=== PATIENT | female | born 1955 | race Caucasian/White ===

== ENCOUNTER 2022-06-10 15:03 | Emergency (ER) | payer MEDICARE, SELFPAY ==
[2022-06-10 15:39] VITALS: BP 151/73; PULSE 74; RESP 18; TEMP 36.4; O2SAT 98; BMI 21.8
--- NOTE | 2022-06-10 17:16 | ED.NURSE ---
DR DIOP AWARE OF VS AND CRITICAL CONDITION. -POSSIBLE SEPSIS. DID HANG ZOSYN AND DR AWARE THAT 2ND SET OF BLOOD CULTURES NOT OBTAINED PER LAB. TO GO AHEAD AND START THE ANTIBIOTICS. 02 AT 2 L N/C. RR 36.
--- NOTE | 2022-06-10 19:23 | ED.GENADULT ---
HPI - General Adult General Date Seen: 06/10/22 Chief complaint: Extremity Pain/Injury, Lower Stated complaint: POSSIBLE BLEED ON THIGH,INR HIGH-SENT BY CLINIC Time Seen by Provider: 06/10/22 17:13 Source: patient History of Present Illness HPI narrative: Patient is a 67-year-old woman who presents for evaluation of possible bleed in her left thigh. She takes Coumadin for history both of Factor 5 Leiden and DVT as well as for mechanical valve. She had her INR checked today and it was 3.5. She says this morning when she woke up she felt like she had muscle pull in her left medial mid thigh. There was lump there as well which has maybe gotten slightly bigger since this morning but not considerably so. She denies any specific trauma to that area but she is very physically active. Her says she exercises couple of times a day and often bikes 10 miles or more a day. She says she has a history of a fairly significant bleed in her right thigh which required several days hospitalization, so she wants to make sure that does not happen on this side. She says she was seen in clinic and they sent her here saying that she should have a CT scan to make sure that a larger bleed is prevented. Related Data Home Medications Medication Instructions Recorded Confirmed acetaminophen 325 mg tablet (Aphen) 325 mg PO Q6H PRN 06/10/22 06/10/22 albuterol 90 mcg/actuation aerosol mcg inhalation 06/10/22 inhaler aspirin 81 mg tablet,delayed 81 mg PO DAILY 06/10/22 06/10/22 release (Ecotrin Low Strength) azithromycin 500 mg tablet mg 06/10/22 cholecalciferol (vitamin D3) 25 1,000 unit PO DAILY 06/10/22 06/10/22 mcg (1,000 unit) tablet digoxin 250 mcg (0.25 mg) tablet mcg 06/10/22 diltiazem HCl 240 mg mg PO 06/10/22 capsule,extended release 24 hr, controlled (DILT-XR) famotidine 20 mg tablet 20 mg PO DAILY 06/10/22 06/10/22 furosemide 20 mg tablet mg 06/10/22 levothyroxine 88 mcg tablet mcg 06/10/22 magnesium glycinate 100 mg tablet 100 mg PO DAILY 06/10/22 06/10/22 (Mag Glycinate) ofloxacin 0.3 % ear drops drp 06/10/22 pantoprazole 40 mg tablet,delayed mg PO 06/10/22 release riboflavin (vitamin B2) 100 mg 100 mg PO DAILY 06/10/22 06/10/22 tablet warfarin 1 mg tablet mg 06/10/22 warfarin 5 mg tablet mg 06/10/22 Allergies Allergy/AdvReac Type Severity Reaction Status Date / Time amiodarone Allergy Verified 06/10/22 15:38 aspirin Allergy Verified 06/10/22 15:38 fructose Allergy Verified 06/10/22 15:38 Penicillins Allergy Verified 06/10/22 15:38 Sulfa (Sulfonamide Allergy Verified 06/10/22 15:38 Antibiotics) zinc oxide Allergy Verified 06/10/22 15:38 cefprozil Allergy Rash Uncoded 06/10/22 15:38 Review of Systems Status of ROS: Reports: 10 or more systems reviewed and unremarkable except as noted in History and below [facility] Social History Smoking Status: Never smoker Do you use any of these nicotine containing products: None Second hand tobacco smoke exposure: No How often do you have a drink containing alcohol: never AUDIT-C Alcohol total score: 0 Non-prescribed substance use: denies use service: No Exam Narrative: Exam Narrative: Vital signs as noted above. In general, an alert, well-appearing patient. Head: Normocephalic, atraumatic. Eyes: Pupils are equal reactive. Extraocular movements are full. Conjunctivae are normal. ENT: Mucous membranes are moist. Throat is normal. Neck: Supple without lymphadenopathy. Extremities: Well perfused. No edema. No calf tenderness. Pulses intact. In the medial mid left thigh, there is some bruising on the skin, and then there is a several cm tender mass deeper in the tissues. There is no overlying erythema and this does not feel fluctuant. Neurologic: Patient is alert and oriented to person and place. Speech is fluent. Face is symmetric. Moves all extremities equally. Affect: Normal. Skin: Warm and dry. Well perfused. Const: Vital Signs, click to edit/add: Vital Signs - 24 hr 06/10/22 15:39 Temperature 97.5 F L Pulse Rate [Right Pulse Oximeter] 74 Respiratory Rate 18 Blood Pressure [Ri ght Upper Arm] 151/73 H Pulse Oximetry 98 Oxygen Delivery Me thod Room Air Documenting provider has reviewed patient's vital signs: yes Course Course Hospital Course: I had originally intended to check her INR but she had that done earlier today so not going to repeat that. Given the small amount of bleeding I do not think hemoglobin needs to be checked as well. I did talk with him about imaging. I do not think a CT scan is going to be helpful; it will show I think a small hematoma in that area, which is what I suspect clinically. Likewise, well I discussed with him we could certainly do an ultrasound to further delineate that area, again, I think we will confirm our clinical suspicions that she has a small hematoma there. I do not think there is anything that will change in terms of management by doing imaging. I discussed with her that there is no way to ?make sure that this will not bleed further, even if we do imaging. I think her best chance that this is to take it easy over the next week or so, not do any exercise, use ice in some mild compression over the next few days. Also, I think that we do not need her INR to be at the high end of her range, and we could decrease her Coumadin just slightly over for the next few days and try to get her Coumadin a little closer to the middle of her range instead of at the high point. We discussed that with a mechanical valve, we certainly do not want to reverse her anticoagulation at this time based on what right now is a small seemingly contained area of bleeding. We did discuss that the thigh can potentially hold a lot of blood, so if she notices that this is growing significantly, I do want her to be seen again. It sounds as if it is been mostly stable throughout the day, which is encouraging. Vital Signs Vital signs: Initial Vital Signs Temperature 97.5 F L 06/10/22 15:39 Temperature Source Temporal Artery Scan 06/10/22 15:39 Pulse Rate 74 06/10/22 15:39 Respiratory Rate 18 06/10/22 15:39 Blood Pressure 151/73 H 06/10/22 15:39 Blood Pressure Mean 99 06/10/22 15:39 Blood Pressure Position Sitting 06/10/22 15:39 Pulse Oximetry 98 06/10/22 15:39 Oxygen Delivery Method 06/10/22 15:39 Vital Signs Temperature 97.5 F L 06/10/22 15:39 Pulse Rate 74 06/10/22 15:39 Respiratory Rate 18 06/10/22 15:39 Blood Pressure 151/73 H 06/10/22 15:39 Pulse Oximetry 98 06/10/22 15:39 Oxygen Delivery Method 06/10/22 15:39 Temperature 97.5 F L 06/10/22 15:39 Pulse Rate 74 06/10/22 15:39 Respiratory Rate 18 06/10/22 15:39 Blood Pressure 151/73 H 06/10/22 15:39 Pulse Oximetry 98 06/10/22 15:39 Oxygen Delivery Method 06/10/22 15:39 Discharge Plan Discharge Clinical Impression: Hematoma of left thigh, Anticoagulated on Coumadin Patient Disposition: Home, Self-Care Condition: Stable Instructions: Hematoma (ED) Additional Instructions: Compression and or ice as discussed. Limit activities for the next week. Coumadin schedule as follows, 5 mg tomorrow and , 6 mg on Thursday, then resume your normal schedule. Can recheck your INR with your clinic later this week if you like. If you have significant increased bleeding, swelling, or new symptoms such as redness or fever, return to the emergency department for re-evaluation. Prescriptions: No Action diltiazem HCl [DILT-XR] 240 mg capsule,ext.rel 24h degradable PO Label Comments: TAKE 1 CAPSULE (240 MG) BY MOUTH ONCE DAILY. digoxin 250 mcg (0.25 mg) tablet Label Comments: TAKE 1 TABLET (250 MCG) BY MOUTH ONCE DAILY. levothyroxine 88 mcg tablet Label Comments: TAKE 1 TABLET BY MOUTH BEFORE BREAKFAST. BEST IF TAKEN ON EMPTY STOMACH. ofloxacin 0.3 % drops Label Comments: PLACE 5 DROPS INTO RIGHT EAR ONCE DAILY. pantoprazole 40 mg tablet,delayed release (DR/EC) PO Label Comments: TAKE 1 TABLET BY MOUTH ONCE DAILY BEFORE A MEAL. TAKE 30-60 MINUTES BEFORE A MEAL/FOOD ONCE A DAY. warfarin 5 mg tablet Label Comments: TAKE 7 MG (5MG X 1 AND 1MG X 2) EVERY FRI 6 MG (5MG X 1 AND 1MG X 1) ALL OTHER DAYS OR DIRECTED furosemide 20 mg tablet Label Comments: TAKE 1 TABLET BY MOUTH EVERY MORNING warfarin 1 mg tablet Label Comments: TAKE BY MOUTH 7MG(5MGX1 + 1MGX2) EVERY FRI 6MG(5MGX1 + 1MGX1) ALL OTHER DAYS OR DIRECTED CLINIC famotidine 20 mg tablet 20 mg PO DAILY azithromycin 500 mg tablet Label Comments: TAKE 1 TABLET BY MOUTH 30 -60 MINUTES BEFORE DENTAL APPOINTMENT albuterol 90 mcg/actuation aerosol inhalation aspirin [Ecotrin Low Strength] 81 mg tablet,delayed release (DR/EC) 81 mg PO DAILY acetaminophen [Aphen] 325 mg tablet 325 mg PO Q6H PRN cholecalciferol (vitamin D3) 25 mcg (1,000 unit) tablet 1,000 unit PO DAILY Mag Glycinate 100 mg tablet 100 mg PO DAILY riboflavin (vitamin B2) 100 mg tablet 100 mg PO DAILY Follow Up/Referrals: Sergo Rodriguez MD [Primary Care Provider] - Stand Alone Forms: [facility] Info Instructions
== END 2022-06-10 18:54 | disposition home or self-care (01) ==
LOC: ED 18:11
PROVIDERS: Emergency Provider Emergency Medicine; PCP Family Medicine
DX: S70.12XA Contusion of left thigh, initial encounter (principal); X58.XXXA Exposure to other specified factors, initial encounter; Y93.9 Activity, unspecified; Y92.9 Unspecified place or not applicable; Y99.9 Unspecified external cause status; Z79.01 Long term (current) use of anticoagulants
CPT/HCPCS: 85025; 85610; 99282; 99283

== ENCOUNTER 2022-10-27 14:35 | Outpatient (CLI) | payer MEDICARE, SELFPAY ==
--- NOTE | 2022-10-27 15:00 | CRLHL7_ITS ---
For Patients: As a result of the Century Cures Act, medical imaging exams and procedure reports are released immediately into your electronic medical record. You may view this report before your referring provider. If you have questions, please contact your health care provider. BILATERAL SCREENING MAMMOGRAM WITH COMPUTER-AIDED DETECTION AND TOMOSYNTHESIS TECHNIQUE: CC and MLO views were obtained. These mammographic images have been obtained using full-field digital technique. These mammographic images were interpreted with the benefit of computer-aided detection. Breast Tomosynthesis was used in this interpretation. COMPARISON FILM: 10/09/21, 09/25/20, 09/15/19. FINDINGS: The breasts are heterogeneously dense, which may obscure small masses IMPRESSION: There is no radiographic evidence for malignancy. ASSESSMENT: BI-RADS Category 1: Negative RECOMMENDATION: Routine screening mammogram in 1 year. A lay language report of this examination will be provided to the patient. Caleb Chakraborty M.D. Diagnostic Radiologist [email or web address] [place]/Dictated by: Caleb Chakraborty MD @ 10/28/2022 9:24:00 AM (Electronically Signed)
== END 2022-10-27 14:36 | disposition home or self-care (01) ==
LOC: MAMMO 14:35
PROVIDERS: PCP Family Medicine; Visit Provider Family Medicine
DX: Z12.31 Encounter for screening mammogram for malignant neoplasm of breast (principal); R92.2 Inconclusive mammogram
CPT/HCPCS: 77063; 77067

== ENCOUNTER 2023-12-09 08:53 | Outpatient (CLI) | payer MEDICARE, SELFPAY ==
--- NOTE | 2023-12-09 09:15 | MM_ITS ---
Patient: FRED DAVE Facility:?[facility] Patient ID:?[id number] Site Patient ID:?[id number] Site :?[id number] Study:?XRay-Breast Bilateral 3D W/CAD-12/09/2023 9:22:10 AM Ordering Physician:?Sergo Rodriguez Final Report: BILATERAL SCREENING MAMMOGRAM WITH COMPUTER-AIDED DETECTION AND TOMOSYNTHESIS TECHNIQUE: CC and MLO views were obtained. These mammographic images have been obtained using full-field digital technique. These mammographic images were interpreted with the benefit of computer-aided detection. Breast Tomosynthesis was used in this interpretation. COMPARISON FILM: 10/27/22, 10/09/21, 09/25/20. FINDINGS: The breasts are heterogeneously dense, which may obscure small masses. IMPRESSION: There is no radiographic evidence for malignancy. ASSESSMENT: BI-RADS Category 1: Negative RECOMMENDATION: Routine screening mammogram in 1 year. A lay language report of this examination will be provided to the patient. Caleb Chakraborty M.D. Diagnostic Radiologist [email or web address] DSM/sp R& Transcribed: 3:54 p.m. SP/Dictated by: Caleb Chakraborty MD @ 12/09/2023 10:17:00 AM Signed by:?Caleb Chakraborty MD @12/09/2023 4:01:09 PM (Electronic Signature)
== END 2023-12-09 08:54 | disposition home or self-care (01) ==
LOC: MAMMO 08:54
PROVIDERS: PCP Family Medicine; Visit Provider Family Medicine
DX: Z12.31 Encounter for screening mammogram for malignant neoplasm of breast (principal); R92.2 Inconclusive mammogram
CPT/HCPCS: 77063; 77067

== ENCOUNTER 2024-12-09 08:03 | Outpatient (CLI) | payer MEDICARE, SELFPAY ==
--- NOTE | 2024-12-09 08:15 | CRLHL7_ITS ---
For Patients: As a result of the Century Cures Act, medical imaging exams and procedure reports are released immediately into your electronic medical record. You may view this report before your referring provider. If you have questions, please contact your health care provider. BILATERAL SCREENING MAMMOGRAM WITH COMPUTER-AIDED DETECTION AND TOMOSYNTHESIS TECHNIQUE: CC and MLO views were obtained. These mammographic images have been obtained using full-field digital technique. These mammographic images were interpreted with the benefit of computer-aided detection. Breast tomosynthesis was used in this interpretation. COMPARISON FILM: 12/09/23, 10/27/22, 10/09/21. FINDINGS: The breasts are heterogeneously dense, which may obscure small masses. IMPRESSION: There is no radiographic evidence for malignancy. ASSESSMENT: BI-RADS Category 1: Negative RECOMMENDATION: Routine screening mammogram in 1 year. A lay language report of this examination will be provided to the patient. CALEB CONKLIN M.D. Diagnostic Radiologist [email or web address] [place]/juan Transcribed: 12/09/2024, 1:[address]/Dictated by: Caleb Conklin MD @ 12/09/2024 9:52:00 AM (Electronically Signed)
== END 2024-12-09 08:04 | disposition home or self-care (01) ==
LOC: MAMMO 08:05
PROVIDERS: PCP Family Medicine; Visit Provider Family Medicine
DX: Z12.31 Encounter for screening mammogram for malignant neoplasm of breast (principal); R92.333 Mammographic heterogeneous density, bilateral breasts
CPT/HCPCS: 77063; 77067

== ENCOUNTER 2025-01-23 11:16 | Outpatient (CLI) | payer MEDICARE, SELFPAY ==
--- NOTE | 2025-01-23 11:30 | CRLHL7_ITS ---
For Patients: As a result of the Century Cures Act, medical imaging exams and procedure reports are released immediately into your electronic medical record. You may view this report before your referring provider. If you have questions, please contact your health care provider. INDICATION: Abdominal pain and bloating COMPARISON: none TECHNIQUE: Real time loera scale imaging and color Doppler analysis was performed of the right upper quadrant. FINDINGS: The patient`s liver is of normal size and has uniform echogenicity. Mildly prominent IVC. No aortic aneurysm. There is no evidence of ascites. The gallbladder is of normal size and there are multiple echogenic stones present measuring up to 1.9 cm. The gallbladder wall measures 4.3 mm in thickness. The common bile duct is of normal size and measures 3.5 mm in diameter at the level of the caroline hepatis. The pancreas appears normal. There is no evidence of a stone or hydronephrosis within the right kidney. The right kidney measures 9.8 cm in length. IMPRESSION: Multiple gallstones are present within the gallbladder lumen with associated gallbladder wall thickening suggesting chronic cholecystitis. Dictated by Caleb Chakraborty MD @ 01/23/2025 2:54:58 PM (Electronically Signed)
== END 2025-01-23 11:17 | disposition home or self-care (01) ==
LOC: US 11:17
PROVIDERS: PCP Family Medicine; Visit Provider Physician Assistant
DX: R14.0 Abdominal distension (gaseous) (principal); K80.20 Calculus of gallbladder without cholecystitis without obstruction; R10.13 Epigastric pain; K59.01 Slow transit constipation
CPT/HCPCS: 76705